=== PATIENT | male | born 1945 | race Caucasian/White ===

== ENCOUNTER 2016-11-14 23:15 | Emergency (ER) | payer OTHER ==
[~2016-11-14] VITALS: Ht 182.9 cm; Wt 90.7 kg
[2016-11-15 00:03] LABS: Basophils # (auto) 0 uL; Basophils % (auto) 0.3 % (0.0-2.0); Eosinophils # (auto) 0.1 uL; Eosinophils % (auto) 0.7 % (0.0-7.0); Hematocrit 43.2 % (41.0-53.0); Hemoglobin 13.9 g/dL (13.5-17.5); Lymphocytes # (auto) 0.9 uL; Lymphocytes % (auto) 10.2 % (10.0-50.0); Mean Corpuscular Hemoglobin 30.4 pg (28.0-32.0); Mean Corpuscular Hgb Conc. 32.2 g/dL (32.0-36.0); Mean Corpuscular Volume 94.3 fL (80.0-100.0); Mean Platelet Volume 9.4 fL (7.4-10.4); Monocytes # (auto) 0.8 uL; Monocytes % (auto) 9.8 % (0.0-12.0); Neutrophils # (auto) 6.7 uL; Platelet Count (auto) 162 10^3/uL (140-450); Red Cell Distribution Width 12.8 % (11.6-16.0); SUSPECT SEE PRINTOUT; White Blood Cell 8.5 10^3/uL (4.4-10.8)
[2016-11-15 00:17] LABS: Albumin 3.9 g/dL (3.4-5.0); Anion Gap 7 (5-15); Blood Urea Nitrogen 16 mg/dL (7-18); Calcium 9.1 mg/dL (8.5-10.1); Carbon Dioxide 29 mmol/L (21-32); Chloride 99 mmol/L (98-107); Glucose 106 mg/dL (74-106); Magnesium 2.2 mg/dL (1.6-2.6); Potassium 4.6 mmol/L (3.5-5.1); Sodium 135 mmol/L (136-145)
[2016-11-15 00:19] LABS: BUN/Creatinine Ratio 19.3; GFR African American 117 mL/min; GFR Non-African American 97 mL/min
[2016-11-15 00:33] LABS: Alkaline Phosphatase 87 U/L (45-117); Aspartate Aminotransferase 21 U/L (15-37); Total Protein 7.8 g/dL (6.4-8.2)
[2016-11-15] MEDS ORDERED: ASPirin 81 mg TAB PO ONE (03:00)
[2016-11-15] MEDS ORDERED: KETOROLAC TROMETH 30 MG/ML 1ML VIAL IV ONE (03:00)
[2016-11-15] MEDS ORDERED: methylPREDNISolone SOD SUCC 125 MG/2 ML VL IV ONE (03:00)
[2016-11-15 03:35] LABS: INR 1.03 (0.9-1.15); Partial Thromboplastin Time 30.9 sec (22.64-33.71); Prothrombin Time 11.2 sec (9.37-12.3)
[2016-11-15 03:48] LABS: B-Type Natriuretic Peptide 78.66 pg/mL (0-100)
[2016-11-15 03:56] LABS: Urine Bilirubin Negative (Negative); Urine Blood Negative /uL (Negative); Urine Color Yellow (Yellow); Urine Glucose Normal (Normal); Urine Nitrite Negative (Negative); Urine RBC <1 /hpf (0 - 3); Urine Urobilinogen Normal (Negative); Urine pH 5.5 (5.0-8.0)
[2016-11-15 04:03] LABS: Urine Ketone 1+ (Negative)
[2016-11-15 04:04] LABS: Temperature: 23.1 C (20.0-25.0)
[2016-11-15 04:59] VITALS: BP 152/79
== END 2016-11-15 04:51 | disposition home or self-care (01) ==
LOC: ER 23:15
DX: J44.1 Chronic obstructive pulmonary disease with (acute) exacerbation (principal); I25.10 Atherosclerotic heart disease of native coronary artery without angina pectoris; I10 Essential (primary) hypertension
CPT/HCPCS: 36415; 71010; 71101; 80053; 81001; 83735; 83880; 84484; 85025; 85379; 85610; 85730; 93005; 94761; 96374; 96375; 99285; J1885; J2930

== ENCOUNTER 2021-08-10 10:51 | Inpatient (IN) | payer OTHER ==
[~2021-08-10] VITALS: Ht 180.3 cm; Wt 70.7 kg
[~2021-08-10 10:51] MED LIST: ALB5IS NEB; CAR3125T PO; IPR002IS NEB; LEVO500T31 PO; PRED-559 PO; SIMV-8 PO
[2021-08-10 12:08] LABS: Basophils # (auto) 0 10 ^3/uL (0-0.2); Basophils % (auto) 0.1 % (0.0-2.0); Eosinophils # (auto) 0 10 ^3/uL (0-0.8); Eosinophils % (auto) 0.2 % (0.0-7.0); Hematocrit 36.9 % (41.0-53.0); Hemoglobin 12.3 g/dL (13.5-17.5); Lymphocytes # (auto) 0.3 10 ^3/uL (0.4-5.4); Lymphocytes % (auto) 5.7 % (10.0-50.0); Mean Corpuscular Hemoglobin 32.4 pg (28.0-32.0); Mean Corpuscular Hgb Conc. 33.3 g/dL (32.0-36.0); Mean Corpuscular Volume 97.1 fL (80.0-100.0); Monocytes # (auto) 0.4 10 ^3/uL (0-1.3); Monocytes % (auto) 6.3 % (0.0-12.0); Neutrophils % (auto) 87.7 % (37.0-80.0); Red Cell Distribution Width 13.2 % (11.8-14.3); White Blood Cell 5.7 10^3/uL (4.4-10.8)
[2021-08-10 12:10] LABS: Albumin 3.9 g/dL (3.4-5.0); BUN/Creatinine Ratio 22.1; Calcium 8.5 mg/dL (8.5-10.1); Magnesium 1.8 mg/dL (1.6-2.6); Potassium 4.9 mmol/L (3.5-5.1)
[2021-08-10 12:13] LABS: Bilirubin, Total 1.4 mg/dL (0.2-1.0); Total Protein 6.5 g/dL (6.4-8.2)
[2021-08-10] MEDS ORDERED: IOHEXOL 350 MG/ML 100ML IJ ONE (13:37)
[2021-08-10] MEDS ORDERED: ONDANSETRON HCL 4 MG/2 ML VIAL IV ONE (14:15)
[2021-08-10] MEDS ORDERED: MORPHINE SULFATE INJECTION 2 MG/ML SYRG IV ONE (14:15)
[2021-08-10] MEDS ORDERED: ALBUTEROL SULF 2.5 MG/0.5ML(0.5%) NEB SOLN NEB ONE (15:45)
[2021-08-10] MEDS ORDERED: IPRATROPIUM BROM 0.5 MG/2.5ML INH SOL NEB ONE (15:45)
[2021-08-10] MEDS ORDERED: NITROGLYCERIN 0.4 MG SL TAB SL PRN (17:45)
[2021-08-10 21:50] VITALS: BP 90/57
[2021-08-10] MEDS: CARVEDILOL 3.125 MG TAB PO SCH (22:00)
[2021-08-10] MEDS ORDERED: HYDR-4902 PO (22:09)
[2021-08-10] MEDS: methylPREDNISolone SOD SUCC 125 MG/2 ML VL IV SCH (22:49)
[2021-08-11 05:29] VITALS: BP 95/61
[2021-08-11 05:34] LABS: Basophils # (auto) 0 10 ^3/uL (0-0.2); Basophils % (auto) 0.1 % (0.0-2.0); Eosinophils # (auto) 0 10 ^3/uL (0-0.8); Hemoglobin 11.8 g/dL (13.5-17.5); Monocytes # (auto) 0.1 10 ^3/uL (0-1.3)
[2021-08-11 05:35] LABS: Hematocrit 34.8 % (41.0-53.0); Lymphocytes # (auto) 0.2 10 ^3/uL (0.4-5.4); Lymphocytes % (auto) 3.8 % (10.0-50.0); Mean Corpuscular Hgb Conc. 33.9 g/dL (32.0-36.0); Mean Corpuscular Volume 97.4 fL (80.0-100.0); Neutrophils # (auto) 3.7 10 ^3/uL (1.6-8.6); Neutrophils % (auto) 94.1 % (37.0-80.0); Red Blood Cells 3.58 10^6/uL (4.5-5.90); Red Cell Distribution Width 13.3 % (11.8-14.3)
[2021-08-11 05:55] LABS: Albumin 3.1 g/dL (3.4-5.0); Calcium 8.5 mg/dL (8.5-10.1); Potassium 4.7 mmol/L (3.5-5.1)
[2021-08-11 06:00] LABS: BUN/Creatinine Ratio 25.6; Bilirubin, Total 0.9 mg/dL (0.2-1.0)
[2021-08-11] MEDS: methylPREDNISolone SOD SUCC 125 MG/2 ML VL IV SCH (06:07)
[2021-08-11] MEDS: IPRATROPIUM BROM 0.5 MG/2.5ML INH SOL NEB SCH ×4 (07:27→22:03)
[2021-08-11 08:00] VITALS: BP 105/54
[2021-08-11 08:38] VITALS: BP 92/54
[2021-08-11] MEDS ORDERED: ENOXAPARIN SOD 40 MG/0.4 ML SYRINGE SC SCH (10:00)
[2021-08-11] MEDS: CARVEDILOL 3.125 MG TAB PO SCH ×2 (12:15→21:12)
[2021-08-11 12:30] VITALS: BP 118/68
[2021-08-11] MEDS: ALBUTEROL SULF 2.5 MG/0.5ML(0.5%) NEB SOLN NEB PRN (16:18)
[2021-08-11 16:47] VITALS: BP 105/54
[2021-08-11 17:24] LABS: INR 1.1 (0.9-1.15); Partial Thromboplastin Time 30.4 sec (23.6-33.0)
[2021-08-11 21:53] VITALS: BP 109/60
[2021-08-11 22:34] LABS: Urine Bacteria NONE SEEN /hpf (None Seen); Urine Blood Negative /uL (Negative); Urine Budding Yeast OCCASIONAL /hpf (None Seen); Urine Hyaline Cast MANY /lpf (0 - 2); Urine Specific Gravity 1.027 (1.001-1.035); Urine WBC 1 /hpf (0 - 3)
[2021-08-11] MEDS ORDERED: ACETAMINOPHEN 325 MG TAB PO PRN (23:00)
[2021-08-12 04:03] VITALS: BP 109/60
[2021-08-12 04:34] VITALS: BP 127/69
[2021-08-12 06:23] LABS: Basophils # (auto) 0 10 ^3/uL (0-0.2); Eosinophils # (auto) 0 10 ^3/uL (0-0.8); Hematocrit 34.2 % (41.0-53.0); Hemoglobin 11.4 g/dL (13.5-17.5); Lymphocytes # (auto) 0.4 10 ^3/uL (0.4-5.4); Lymphocytes % (auto) 4.8 % (10.0-50.0); Mean Corpuscular Hemoglobin 32.2 pg (28.0-32.0); Mean Corpuscular Hgb Conc. 33.3 g/dL (32.0-36.0); Mean Corpuscular Volume 96.8 fL (80.0-100.0); Monocytes # (auto) 0.5 10 ^3/uL (0-1.3); Monocytes % (auto) 5.8 % (0.0-12.0); Neutrophils # (auto) 8.1 10 ^3/uL (1.6-8.6); Neutrophils % (auto) 89.4 % (37.0-80.0); Red Blood Cells 3.53 10^6/uL (4.5-5.90); Red Cell Distribution Width 13.2 % (11.8-14.3); White Blood Cell 9.1 10^3/uL (4.4-10.8)
[2021-08-12 06:43] LABS: Potassium 5.1 mmol/L (3.5-5.1)
[2021-08-12 06:54] LABS: BUN/Creatinine Ratio 41.3; Calcium 8.7 mg/dL (8.5-10.1)
[2021-08-12] MEDS: IPRATROPIUM BROM 0.5 MG/2.5ML INH SOL NEB SCH ×3 (08:19→18:11)
[2021-08-12] MEDS: ALBUTEROL SULF 2.5 MG/0.5ML(0.5%) NEB SOLN NEB PRN ×3 (08:19→18:11)
[2021-08-12 09:00] VITALS: BP 108/65
[2021-08-12] MEDS: CARVEDILOL 3.125 MG TAB PO SCH (09:04)
[2021-08-12] MEDS ORDERED: PANTOPRAZOLE 40 MG TAB PO SCH (10:00)
[2021-08-12 13:00] VITALS: BP 105/65
[2021-08-12 17:00] VITALS: BP 116/72
== END 2021-08-12 18:11 | disposition home or self-care (01) | DRG 200 ==
LOC: EDBD 10:51 → ER 10:51 → EDUNIT# 10:51 → TELE 17:37 → TELE-WESTW 21:00
PROVIDERS: ADMIT Internal Medicine; ATTEND Internal Medicine
DX: J95.811 Postprocedural pneumothorax (principal); J98.11 Atelectasis; T79.7XXA Traumatic subcutaneous emphysema, initial encounter; J96.11 Chronic respiratory failure with hypoxia; N28.89 Other specified disorders of kidney and ureter; E78.5 Hyperlipidemia, unspecified; Z20.822 Contact with and (suspected) exposure to COVID-19; I10 Essential (primary) hypertension; I25.10 Atherosclerotic heart disease of native coronary artery without angina pectoris; Z99.81 Dependence on supplemental oxygen; Z85.118 Personal history of other malignant neoplasm of bronchus and lung; Z79.899 Other long term (current) drug therapy; J44.9 Chronic obstructive pulmonary disease, unspecified
CPT/HCPCS: 36415; 71045; 71046; 71275; 80048; 80053; 81001; 83735; 84484; 85025; 85610; 85730; 93005; 94003; 94640; 96374; 96375; 99291; G0378; J2405

== ENCOUNTER 2022-03-18 22:24 | Inpatient (IN) | payer OTHER ==
[~2022-03-18] VITALS: Ht 185.4 cm; Wt 61.0 kg
[~2022-03-18 22:24] MED LIST changes: +HYDR-4902 PO; -IPR002IS NEB; -LEVO500T31 PO; -PRED-559 PO; -SIMV-8 PO
[2022-03-18 23:54] LABS: Basophils # (auto) 0 10 ^3/uL (0-0.2); Basophils % (auto) 0.3 % (0.0-2.0); Eosinophils # (auto) 0 10 ^3/uL (0-0.8); Eosinophils % (auto) 1.2 % (0.0-7.0); Hematocrit 34.9 % (41.0-53.0); Hemoglobin 11.8 g/dL (13.5-17.5); Lymphocytes # (auto) 0.4 10 ^3/uL (0.4-5.4); Lymphocytes % (auto) 12.5 % (10.0-50.0); Mean Corpuscular Hemoglobin 33.2 pg (28.0-32.0); Mean Corpuscular Hgb Conc. 33.8 g/dL (32.0-36.0); Mean Corpuscular Volume 98.2 fL (80.0-100.0); Monocytes # (auto) 0.3 10 ^3/uL (0-1.3); Monocytes % (auto) 9.5 % (0.0-12.0); Neutrophils # (auto) 2.5 10 ^3/uL (1.6-8.6); Neutrophils % (auto) 76.5 % (37.0-80.0); Red Blood Cells 3.55 10^6/uL (4.5-5.90); Red Cell Distribution Width 13.8 % (11.8-14.3); White Blood Cell 3.2 10^3/uL (4.4-10.8)
[2022-03-19 00:24] LABS: Albumin 3.6 g/dL (3.4-5.0); BUN/Creatinine Ratio 26.9; Calcium 8.6 mg/dL (8.5-10.1); Potassium 4.3 mmol/L (3.5-5.1)
[2022-03-19 00:26] LABS: Bilirubin, Total 0.7 mg/dL (0.2-1.0); Total Protein 6.2 g/dL (6.4-8.2)
[2022-03-19] MEDS ORDERED: AZITHROMYCIN 500MG/ 250ML 250 ML IV ONE (00:45)
[2022-03-19] MEDS ORDERED: cefTRIAXone 1GM/50ML D5W 50 ML IV ONE (00:45)
[2022-03-19] MEDS ORDERED: ALBUTEROL SULF 2.5 MG/0.5ML(0.5%) NEB SOLN NEB ONE (00:45)
[2022-03-19] MEDS ORDERED: DexAMETHasone SOD PHOS 10MG/1ML VIAL INJ IV ONE (00:45)
[2022-03-19 07:21] LABS: Urine Bacteria NONE SEEN /hpf (None Seen); Urine Blood Negative /uL (Negative); Urine Specific Gravity 1.012 (1.001-1.035); Urine WBC 1 /hpf (0 - 3)
[2022-03-19] MEDS ORDERED: NITROGLYCERIN 0.4 MG SL TAB SL PRN (09:00)
[2022-03-19] MEDS ORDERED: HYDROcodone-ACET 5/325MG TAB PO PRN (09:00)
[2022-03-19] MEDS ORDERED: MORPHINE SULFATE INJ 2 MG/ml SYRG IV PRN ×2 (09:00)
[2022-03-19] MEDS ORDERED: SIMV-8 PO (09:03)
[2022-03-19] MEDS ORDERED: LISI2.5T47 PO (09:03)
[2022-03-19] MEDS ORDERED: IPRATROPIUM BROM 0.5 MG/2.5ML INH SOL NEB PRN (09:15)
[2022-03-19] MEDS ORDERED: ALBUTEROL SULF 2.5 MG/0.5ML(0.5%) NEB SOLN NEB PRN (09:15)
[2022-03-19 09:28] LABS: Mean Corpuscular Hemoglobin 32.3 pg (28.0-32.0)
[2022-03-19 09:30] LABS: Hematocrit 36.9 % (41.0-53.0); Mean Corpuscular Hgb Conc. 32.5 g/dL (32.0-36.0); Mean Corpuscular Volume 99.6 fL (80.0-100.0); Red Cell Distribution Width 14.2 % (11.8-14.3)
[2022-03-19] MEDS: methylPREDNISolone SOD SUCC 125 MG/2 ML VL IV SCH ×2 (09:32→23:38)
[2022-03-19] MEDS: CARVEDILOL 3.125 MG TAB PO SCH ×2 (09:33→23:40)
[2022-03-19 09:34] VITALS: BP 94/62
[2022-03-19] MEDS: ENOXAPARIN SOD 40 MG/0.4 ML SYRINGE SC SCH ×3 (09:34→10:00)
[2022-03-19] MEDS: LISINOPRIL 5 MG TAB PO SCH (09:34)
[2022-03-19 09:35] LABS: White Blood Cell 1.5 10^3/uL (4.4-10.8)
[2022-03-19] MEDS: SIMVASTATIN 20 MG TABLET PO SCH (09:35)
[2022-03-19 09:36] LABS: Band Neutrophils % (manual) 0; Basophils % (manual) 0 (0.0-2.0); Blast Cells 0; Eosinophils % (manual) 0 (0-7); Metamyelocytes % 0; Myelocytes % 0; Promyelocytes % 0; Reactive Lymphocytes 0
[2022-03-19] MEDS ORDERED: IOHEXOL 350 MG/ML 100ML IJ ONE (09:37)
[2022-03-19 10:01] LABS: BUN/Creatinine Ratio 20.6; Calcium 8.6 mg/dL (8.5-10.1); Potassium 4.4 mmol/L (3.5-5.1)
[2022-03-19 10:09] LABS: Lymphocytes % (manual) 6 (10.0-50.0); Monocytes % (manual) 3 (0-12)
[2022-03-19] MEDS: ALBUTEROL SULF 2.5 MG/0.5ML(0.5%) NEB SOLN NEB SCH ×2 (12:32→18:50)
[2022-03-19] MEDS: IPRATROPIUM BROM 0.5 MG/2.5ML INH SOL NEB SCH ×2 (12:32→18:50)
[2022-03-19] MEDS ORDERED: FUROSEMIDE 20 MG/2 ML VIAL IV ONE (18:45)
[2022-03-19 20:54] VITALS: BP 98/55
[2022-03-19 22:00] VITALS: BP 100/74
[2022-03-20 05:00] VITALS: BP 91/58
[2022-03-20] MEDS: CARVEDILOL 3.125 MG TAB PO SCH ×2 (06:25→22:38)
[2022-03-20 06:39] LABS: Basophils # (auto) 0 10 ^3/uL (0-0.2); Basophils % (auto) 0.1 % (0.0-2.0); Eosinophils # (auto) 0 10 ^3/uL (0-0.8); Hematocrit 32.6 % (41.0-53.0); Hemoglobin 10.7 g/dL (13.5-17.5); Lymphocytes # (auto) 0.5 10 ^3/uL (0.4-5.4); Lymphocytes % (auto) 10.4 % (10.0-50.0); Mean Corpuscular Hemoglobin 32.3 pg (28.0-32.0); Mean Corpuscular Hgb Conc. 32.9 g/dL (32.0-36.0); Mean Corpuscular Volume 98.3 fL (80.0-100.0); Monocytes # (auto) 0.5 10 ^3/uL (0-1.3); Monocytes % (auto) 11.4 % (0.0-12.0); Neutrophils # (auto) 3.4 10 ^3/uL (1.6-8.6); Neutrophils % (auto) 78.1 % (37.0-80.0); Nucleated Red Blood Cells % 0.1 %; Red Blood Cells 3.32 10^6/uL (4.5-5.90); Red Cell Distribution Width 14.5 % (11.8-14.3); White Blood Cell 4.4 10^3/uL (4.4-10.8)
[2022-03-20 06:48] LABS: Calcium 8.7 mg/dL (8.5-10.1); Potassium 4.9 mmol/L (3.5-5.1)
[2022-03-20 06:52] LABS: BUN/Creatinine Ratio 34.7
[2022-03-20] MEDS: ALBUTEROL SULF 2.5 MG/0.5ML(0.5%) NEB SOLN NEB SCH ×3 (08:03→20:16)
[2022-03-20] MEDS: IPRATROPIUM BROM 0.5 MG/2.5ML INH SOL NEB SCH ×3 (08:03→20:16)
[2022-03-20 08:40] VITALS: BP 112/74
[2022-03-20] MEDS: methylPREDNISolone SOD SUCC 125 MG/2 ML VL IV SCH ×2 (09:19→22:38)
[2022-03-20] MEDS: FUROSEMIDE 20 MG/2 ML VIAL IV SCH (09:19)
[2022-03-20] MEDS: LISINOPRIL 5 MG TAB PO SCH (09:20)
[2022-03-20] MEDS: ENOXAPARIN SOD 40 MG/0.4 ML SYRINGE SC SCH (09:20)
[2022-03-20] MEDS: SIMVASTATIN 20 MG TABLET PO SCH (10:00)
[2022-03-20] MEDS: cefTRIAXone 1GM/50ML D5W 50 ML IV SCH (12:30)
[2022-03-20] MEDS: AZITHROMYCIN 500MG/ 250ML 250 ML IV SCH (14:14)
[2022-03-20 16:49] VITALS: BP 98/68
[2022-03-20 22:00] VITALS: BP 115/65
[2022-03-20] MEDS: ACETAMINOPHEN 325 MG TAB PO PRN (22:37)
[2022-03-21 05:00] VITALS: BP 108/75
[2022-03-21] MEDS: IPRATROPIUM BROM 0.5 MG/2.5ML INH SOL NEB SCH ×3 (06:00→19:37)
[2022-03-21] MEDS: ALBUTEROL SULF 2.5 MG/0.5ML(0.5%) NEB SOLN NEB SCH ×3 (06:00→19:37)
[2022-03-21] MEDS: cefTRIAXone 1GM/50ML D5W 50 ML IV SCH (09:27)
[2022-03-21 09:30] VITALS: BP 112/81
[2022-03-21] MEDS: methylPREDNISolone SOD SUCC 125 MG/2 ML VL IV SCH (09:30)
[2022-03-21] MEDS: ENOXAPARIN SOD 40 MG/0.4 ML SYRINGE SC SCH (09:33)
[2022-03-21] MEDS: LISINOPRIL 5 MG TAB PO SCH (09:34)
[2022-03-21] MEDS: CARVEDILOL 3.125 MG TAB PO SCH (09:35)
[2022-03-21] MEDS: FUROSEMIDE 20 MG/2 ML VIAL IV SCH (09:37)
[2022-03-21] MEDS: AZITHROMYCIN 500MG/ 250ML 250 ML IV SCH (09:37)
[2022-03-21] MEDS: SIMVASTATIN 20 MG TABLET PO SCH (09:40)
[2022-03-21] MEDS: ACETAMINOPHEN 325 MG TAB PO PRN (11:30)
[2022-03-21] MEDS ORDERED: ALB5IS NEB (12:34)
[2022-03-21] MEDS ORDERED: PRED20TA2 PO (12:34)
[2022-03-21] MEDS ORDERED: LEVO500T31 PO (12:34)
[2022-03-21] MEDS ORDERED: IPR002IS NEB (12:34)
[2022-03-21 13:30] VITALS: BP 100/86
[2022-03-21 16:39] VITALS: BP 129/77
== END 2022-03-21 20:19 | disposition home health service (06) | DRG 189 ==
LOC: ER 22:24 → OVERFLOW 03-19 08:59 → WEST WING 03-19 20:35
PROVIDERS: ADMIT Registered Nurse; ATTEND Internal Medicine
DX: J96.21 Acute and chronic respiratory failure with hypoxia (principal); J18.9 Pneumonia, unspecified organism; J44.0 Chronic obstructive pulmonary disease with (acute) lower respiratory infection; J44.1 Chronic obstructive pulmonary disease with (acute) exacerbation; J90 Pleural effusion, not elsewhere classified; J98.11 Atelectasis; I10 Essential (primary) hypertension; I25.10 Atherosclerotic heart disease of native coronary artery without angina pectoris; Z20.822 Contact with and (suspected) exposure to COVID-19; E78.5 Hyperlipidemia, unspecified; Z79.899 Other long term (current) drug therapy; Z99.81 Dependence on supplemental oxygen
CPT/HCPCS: 36415; 36600; 71045; 71275; 76604; 80048; 80053; 81001; 82805; 83735; 83880; 84484; 85007; 85025; 85027; 85379; 87426; 87804; 94640; 96365; 96368; 96375; G0378; J0696; J1100

== ENCOUNTER 2022-05-21 09:43 | Inpatient (IN) | payer OTHER ==
[~2022-05-21] VITALS: Ht 182.9 cm; Wt 71.3 kg
[~2022-05-21 09:43] MED LIST changes: -HYDR-4902 PO; +IPR002IS NEB; +LEVO500T31 PO; +LISI2.5T47 PO; +PRED20TA2 PO; +SIMV-8 PO
[2022-05-21 10:25] LABS: Basophils # (auto) 0 10 ^3/uL (0-0.2); Eosinophils # (auto) 0 10 ^3/uL (0-0.8); Hematocrit 35.3 % (41.0-53.0); Hemoglobin 11.5 g/dL (13.5-17.5); Lymphocytes # (auto) 0.4 10 ^3/uL (0.4-5.4); Mean Corpuscular Volume 99.4 fL (80.0-100.0)
[2022-05-21 10:32] LABS: Basophils % (auto) 0.6 % (0.0-2.0); Eosinophils % (auto) 1.2 % (0.0-7.0); Lymphocytes % (auto) 20.4 % (10.0-50.0); Mean Corpuscular Hemoglobin 32.5 pg (28.0-32.0); Mean Corpuscular Hgb Conc. 32.7 g/dL (32.0-36.0); Monocytes # (auto) 0.2 10 ^3/uL (0-1.3); Monocytes % (auto) 13.5 % (0.0-12.0); Neutrophils # (auto) 1.1 10 ^3/uL (1.6-8.6); Neutrophils % (auto) 64.3 % (37.0-80.0); Nucleated Red Blood Cells % 0.1 %; Red Blood Cells 3.56 10^6/uL (4.5-5.90); Red Cell Distribution Width 13.7 % (11.8-14.3)
[2022-05-21 10:37] LABS: Albumin 3.4 g/dL (3.4-5.0); Calcium 8.9 mg/dL (8.5-10.1); Potassium 4.3 mmol/L (3.5-5.1)
[2022-05-21 10:40] LABS: BUN/Creatinine Ratio 28.1; Bilirubin, Total 0.6 mg/dL (0.2-1.0)
[2022-05-21 11:02] LABS: White Blood Cell 1.8 10^3/uL (4.4-10.8)
[2022-05-21] MEDS ORDERED: cefTRIAXone 1GM/50ML D5W 50 ML IV ONE (14:30)
[2022-05-21] MEDS ORDERED: methylPREDNISolone SOD SUCC 125 MG/2 ML VL IV ONE (14:30)
[2022-05-21] MEDS ORDERED: ALBUTEROL MEDNEB 2.5 mg/3ml NEB ONE ×2 (14:52→17:17)
[2022-05-21] MEDS: ALBUTEROL SULF 2.5 MG/0.5ML(0.5%) NEB SOLN NEB ONE ×2 (15:55→15:57)
[2022-05-21] MEDS ORDERED: IPRATROPIUM BROM 0.5 MG/2.5ML INH SOL NEB PRN (16:00)
[2022-05-21] MEDS ORDERED: NITROGLYCERIN 0.4 MG SL TAB SL PRN (16:00)
[2022-05-21] MEDS ORDERED: AZITHROMYCIN 500MG/ 250ML 250 ML IV ONE (16:00)
[2022-05-21] MEDS ORDERED: MORPHINE SULFATE INJ 2 MG/ml SYRG IV PRN (16:00)
[2022-05-21] MEDS ORDERED: IOHEXOL 350 MG/ML 100ML IJ ONE (16:18)
[2022-05-21 16:44] LABS: Cholesterol 120 mg/dL (< 200)
[2022-05-21 16:46] LABS: HDL Cholesterol 90 mg/dL (40-59); LDL Cholesterol 36 mg/dL (< 100); Triglycerides 33 mg/dL (< 150)
[2022-05-21] MEDS ORDERED: IPRATROPIUM BROM 0.5 MG/2.5ML INH SOL ONE (17:17)
[2022-05-21] MEDS ORDERED: ALBUTEROL MEDNEB 2.5 mg/3ml NEB NEB PRN (17:30)
[2022-05-21] MEDS: IPRATROPIUM BROM 0.5 MG/2.5ML INH SOL NEB SCH (17:57)
[2022-05-21] MEDS: ALBUTEROL MEDNEB 2.5 mg/3ml NEB NEB SCH (17:57)
[2022-05-21 19:48] VITALS: BP 135/74
[2022-05-21] MEDS: methylPREDNISolone SOD SUCC 125 MG/2 ML VL IV SCH (21:43)
[2022-05-21] MEDS: CARVEDILOL 3.125 MG TAB PO SCH (21:44)
[2022-05-21 22:00] VITALS: BP 117/72
[2022-05-21] MEDS: SALINE 0.65 % NASAL SPRAY 45ML BOTTLE EACHNOSTRI SCH (22:00)
[2022-05-22] VITALS (7 sets, daily range): BP systolic 93–114; BP diastolic 53–69
[2022-05-22] MEDS: SALINE 0.65 % NASAL SPRAY 45ML BOTTLE EACHNOSTRI SCH ×6 (02:00→22:29)
[2022-05-22 05:36] LABS: Basophils # (auto) 0 10 ^3/uL (0-0.2); Eosinophils # (auto) 0 10 ^3/uL (0-0.8); Lymphocytes # (auto) 0.1 10 ^3/uL (0.4-5.4); Lymphocytes % (auto) 11.4 % (10.0-50.0); Mean Corpuscular Hgb Conc. 32.4 g/dL (32.0-36.0); Monocytes # (auto) 0 10 ^3/uL (0-1.3); Neutrophils % (auto) 86.6 % (37.0-80.0); Red Blood Cells 3.43 10^6/uL (4.5-5.90)
[2022-05-22 05:43] LABS: White Blood Cell 1.1 10^3/uL (4.4-10.8)
[2022-05-22 05:50] LABS: Calcium 8.4 mg/dL (8.5-10.1); Potassium 4.5 mmol/L (3.5-5.1)
[2022-05-22 05:53] LABS: BUN/Creatinine Ratio 29.5; Bilirubin, Total 0.6 mg/dL (0.2-1.0)
[2022-05-22] MEDS: ALBUTEROL MEDNEB 2.5 mg/3ml NEB NEB SCH ×3 (06:00→18:37)
[2022-05-22] MEDS: IPRATROPIUM BROM 0.5 MG/2.5ML INH SOL NEB SCH ×3 (06:00→18:37)
[2022-05-22 07:53] LABS: Urine WBC None Seen /hpf (0 - 3)
[2022-05-22 08:05] LABS: Urine Bacteria NONE SEEN /hpf (None Seen); Urine Blood 3+ /uL (Negative); Urine Hyaline Cast FEW /lpf (0 - 2)
[2022-05-22 08:07] LABS: Urine Specific Gravity 1.355 (1.001-1.035)
[2022-05-22] MEDS: cefTRIAXone 1GM/50ML D5W 50 ML IV SCH (09:15)
[2022-05-22] MEDS ORDERED: PANTOPRAZOLE 40 MG/10 ML VIAL INJ IV SCH (10:00)
[2022-05-22] MEDS: AZITHROMYCIN 500MG/ 250ML 250 ML IV SCH (10:31)
[2022-05-22] MEDS: CARVEDILOL 3.125 MG TAB PO SCH ×2 (10:32→22:31)
[2022-05-22] MEDS: ENOXAPARIN SOD 40 MG/0.4 ML SYRINGE SC SCH (10:33)
[2022-05-22] MEDS: LISINOPRIL 5 MG TAB PO SCH (10:33)
[2022-05-22] MEDS: ATORVASTATIN 20 MG TAB PO SCH (10:34)
[2022-05-22] MEDS: methylPREDNISolone SOD SUCC 125 MG/2 ML VL IV SCH ×3 (10:34→22:29)
[2022-05-23] MEDS: SALINE 0.65 % NASAL SPRAY 45ML BOTTLE EACHNOSTRI SCH ×5 (02:53→21:26)
[2022-05-23 05:00] VITALS: BP 107/71
[2022-05-23] MEDS: ALBUTEROL MEDNEB 2.5 mg/3ml NEB NEB SCH ×2 (06:00→11:14)
[2022-05-23] MEDS: IPRATROPIUM BROM 0.5 MG/2.5ML INH SOL NEB SCH ×2 (06:00→11:14)
[2022-05-23] MEDS: methylPREDNISolone SOD SUCC 125 MG/2 ML VL IV SCH ×3 (06:00→21:26)
[2022-05-23] MEDS: ENOXAPARIN SOD 40 MG/0.4 ML SYRINGE SC SCH (07:34)
[2022-05-23 08:00] VITALS: BP 108/69
[2022-05-23 08:18] LABS: INR 1.05 (0.9-1.15); Partial Thromboplastin Time 24.4 sec (24.6-33.4)
[2022-05-23 09:00] VITALS: BP 108/69
[2022-05-23] MEDS: cefTRIAXone 1GM/50ML D5W 50 ML IV SCH (09:23)
[2022-05-23] MEDS: ATORVASTATIN 20 MG TAB PO SCH (09:29)
[2022-05-23] MEDS: CARVEDILOL 3.125 MG TAB PO SCH ×2 (09:29→21:26)
[2022-05-23] MEDS: LISINOPRIL 5 MG TAB PO SCH (09:31)
[2022-05-23 13:00] VITALS: BP 124/70
[2022-05-23] MEDS: AZITHROMYCIN 500MG/ 250ML 250 ML IV SCH (13:00)
[2022-05-23 17:00] VITALS: BP 99/51
[2022-05-23 22:00] VITALS: BP 90/50
[2022-05-24] MEDS: SALINE 0.65 % NASAL SPRAY 45ML BOTTLE EACHNOSTRI SCH ×5 (02:00→19:32)
[2022-05-24 05:00] VITALS: BP 97/58
[2022-05-24] MEDS: methylPREDNISolone SOD SUCC 125 MG/2 ML VL IV SCH ×3 (06:24→21:40)
[2022-05-24 07:05] LABS: BUN/Creatinine Ratio 35.3; Calcium 8.7 mg/dL (8.5-10.1); Magnesium 2.1 mg/dL (1.6-2.6); Potassium 5.2 mmol/L (3.5-5.1)
[2022-05-24 07:09] LABS: Basophils # (auto) 0 10 ^3/uL (0-0.2); Basophils % (auto) 0.2 % (0.0-2.0); Eosinophils # (auto) 0 10 ^3/uL (0-0.8); Hematocrit 37.4 % (41.0-53.0); Hemoglobin 12.4 g/dL (13.5-17.5); Lymphocytes # (auto) 0.1 10 ^3/uL (0.4-5.4); Lymphocytes % (auto) 3.4 % (10.0-50.0); Mean Corpuscular Hemoglobin 32.8 pg (28.0-32.0); Mean Corpuscular Hgb Conc. 33.2 g/dL (32.0-36.0); Mean Corpuscular Volume 98.8 fL (80.0-100.0); Monocytes # (auto) 0.1 10 ^3/uL (0-1.3); Monocytes % (auto) 2.6 % (0.0-12.0); Neutrophils % (auto) 93.8 % (37.0-80.0); Nucleated Red Blood Cells % 0.1 %; Red Blood Cells 3.79 10^6/uL (4.5-5.90); Red Cell Distribution Width 14.1 % (11.8-14.3); White Blood Cell 3.2 10^3/uL (4.4-10.8)
[2022-05-24 09:00] VITALS: BP 112/74
[2022-05-24] MEDS: cefTRIAXone 1GM/50ML D5W 50 ML IV SCH (09:32)
[2022-05-24] MEDS: ENOXAPARIN SOD 40 MG/0.4 ML SYRINGE SC SCH (09:39)
[2022-05-24] MEDS: ATORVASTATIN 20 MG TAB PO SCH (09:40)
[2022-05-24] MEDS: CARVEDILOL 3.125 MG TAB PO SCH ×2 (09:42→21:41)
[2022-05-24] MEDS: LISINOPRIL 5 MG TAB PO SCH (09:44)
[2022-05-24] MEDS: AZITHROMYCIN 500MG/ 250ML 250 ML IV SCH (09:50)
[2022-05-24 13:00] VITALS: BP 102/61
[2022-05-24 17:00] VITALS: BP 102/60
[2022-05-24 22:00] VITALS: BP 102/71
[2022-05-25 05:00] VITALS: BP 117/66
[2022-05-25] MEDS: methylPREDNISolone SOD SUCC 125 MG/2 ML VL IV SCH ×3 (05:47→22:41)
[2022-05-25] MEDS: ENOXAPARIN SOD 40 MG/0.4 ML SYRINGE SC SCH (07:37)
[2022-05-25] MEDS: cefTRIAXone 1GM/50ML D5W 50 ML IV SCH ×2 (08:49→09:00)
[2022-05-25 09:00] VITALS: BP 122/70
[2022-05-25] MEDS: ATORVASTATIN 20 MG TAB PO SCH (10:00)
[2022-05-25] MEDS: CARVEDILOL 3.125 MG TAB PO SCH ×2 (10:00→22:00)
[2022-05-25] MEDS: AZITHROMYCIN 500MG/ 250ML 250 ML IV SCH (10:00)
[2022-05-25 13:00] VITALS: BP 129/57
[2022-05-25] MEDS ORDERED: PRED20TA2 PO (15:47)
[2022-05-25] MEDS ORDERED: LEVO500T31 PO (15:47)
[2022-05-25 17:00] VITALS: BP 115/65
[2022-05-25 22:00] VITALS: BP 99/53
[2022-05-26 05:00] VITALS: BP 118/68
[2022-05-26] MEDS: methylPREDNISolone SOD SUCC 125 MG/2 ML VL IV SCH (05:34)
[2022-05-26] MEDS: ENOXAPARIN SOD 40 MG/0.4 ML SYRINGE SC SCH (08:56)
[2022-05-26] MEDS: AZITHROMYCIN 500MG/ 250ML 250 ML IV SCH (08:56)
[2022-05-26] MEDS: cefTRIAXone 1GM/50ML D5W 50 ML IV SCH (08:56)
[2022-05-26] MEDS: CARVEDILOL 3.125 MG TAB PO SCH (08:57)
[2022-05-26] MEDS: ATORVASTATIN 20 MG TAB PO SCH (08:57)
[2022-05-26 09:00] VITALS: BP 109/71
[2022-05-26 10:29] VITALS: BP 109/71
== END 2022-05-26 14:20 | disposition hospice, home (50) | DRG 193 ==
LOC: EDSEX 09:43 → ER 09:43 → EDBD 09:43 → TELE 16:01 → TELE-CENTR 21:25
PROVIDERS: ADMIT Registered Nurse; ATTEND Internal Medicine
DX: J18.9 Pneumonia, unspecified organism (principal); J96.21 Acute and chronic respiratory failure with hypoxia; J90 Pleural effusion, not elsewhere classified; J98.11 Atelectasis; R64 Cachexia; E78.5 Hyperlipidemia, unspecified; I11.9 Hypertensive heart disease without heart failure; I25.10 Atherosclerotic heart disease of native coronary artery without angina pectoris; J43.9 Emphysema, unspecified; Z20.822 Contact with and (suspected) exposure to COVID-19; E87.5 Hyperkalemia; E78.00 Pure hypercholesterolemia, unspecified; Z85.118 Personal history of other malignant neoplasm of bronchus and lung; Z87.891 Personal history of nicotine dependence; Z99.81 Dependence on supplemental oxygen; Z68.20 Body mass index [BMI] 20.0-20.9, adult
CPT/HCPCS: 36415; 36600; 70450; 71045; 71275; 76604; 80048; 80053; 80061; 81001; 82805; 83036; 83735; 83880; 84484; 85025; 85610; 85730; 87040; 87426; 93005; 94640; 96365; 96375; C9113; G0378; J0696